=== PATIENT | male | born 1945 | race Caucasian/White ===

== ENCOUNTER 2016-07-31 07:42 | Inpatient (IN) ==
[2016-07-31] MEDS ORDERED: 0.9 % Sodium Chloride 1,000 ML IVC ONE (08:08)
--- NOTE | 2016-07-31 08:12 | Emergency Department Note ---
Disposition Clinical Impression: Parkinson disease, Chronic a-fib, Elevated troponin, Sepsis Disposition: Admitted As Inpatient Condition: Fair Time of Disposition: 11:00 General Adult HPI - General Chief complaint: ED Weakness Stated complaint: weakness Time Seen by Provider: 07/31/16 07:55 Source: EMS Mode of arrival: EMS Limitations: altered mental status, physical limitation Nursing Notes Reviewed: Yes Vital Signs Reviewed: Yes - History of Present Illness HPI Narrative: Patient sent from half-way in [facility] he was found less responsive, diaphorectic this morning. He has a history dementia, Parkinson's disease. His blood pressure was low at the half-way and while enroute they administered fluids. Blood pressure did come up. He is unable to communicate and advise if he is having any pain at this time. Onset (ago): unknown Pain Scale: 0 Associated symptoms: Reports: diaphoresis, weakness - Related Data Home Medications Medication Instructions Recorded Confirmed Carbidopa/Levodopa 1 tab PO TID 04/19/15 07/31/16 [Carbidopa-Levodopa 10-100 Tab] Donepezil HCl [Donepezil HCl] 10 mg PO DAILY 04/19/15 07/31/16 Furosemide [Furosemide] 20 mg PO DAILY 04/19/15 07/31/16 Memantine HCl [Namenda Xr] 28 mg PO HS 04/19/15 07/31/16 Potassium Chloride [Potassium 10 meq PO DAILY 04/19/15 07/31/16 Chloride] Verapamil HCl [Verapamil ER] 240 mg PO DAILY 04/19/15 07/31/16 Warfarin Sodium [Warfarin Sodium] 1.5 tab PO DAILY 04/19/15 07/31/16 Ammonium Lactate [Ashlyn-Hydrolac] 1 appl TP DAILY 07/31/16 07/31/16 Cetirizine HCl [All Day Allergy] 10 mg PO DAILY 07/31/16 07/31/16 Haloperidol Decanoate [Haldol] 5 mg IM DAILY PRN 07/31/16 07/31/16 Haloperidol [Haldol] 5 mg PO DAILY PRN 07/31/16 07/31/16 Menthol/Zinc Oxide [Moisture 1 appl TP QID 07/31/16 07/31/16 Barrier Ointment] Mirtazapine [Remeron] 15 mg PO HS 07/31/16 07/31/16 Quetiapine Fumarate [SEROquel] 25 mg PO BID 07/31/16 07/31/16 Quetiapine Fumarate [SEROquel] 25 mg PO QWEEK MDD saturday07/31/16 07/31/16 Sertraline [Zoloft] 100 mg PO DAILY 07/31/16 07/31/16 Allergies Allergy/AdvReac Type Severity Reaction Status Date / Time No Known Allergies Allergy Verified 07/31/16 07:47 All systems ED: reviewed and negative except as stated. Constitutional: Reports: weakness, night sweats Cardiovascular: Denies: chest pain, palpitations, dyspnea on exertion, edema, syncope Respiratory: Denies: cough, dyspnea, wheezes, hemoptysis, stridor Gastrointestinal: Denies: abdominal pain, nausea, vomiting, diarrhea, constipation, hematemesis, melena, hematochezia Past Medical History - Past Medical History Attestation: Yes The following information was validated with the patient. Source: old records reviewed, obtained from family, nursing notes reviewed Medical history: Reports: atrial fibrillation, CHF, COPD, DVT, dementia, pulmonary embolus Surgical history: Reports: other Psychiatric history: Reports: no psych history - Social History Smoking Status: Former smoker Smokeless Tobacco Status: No Alcohol use: Reports: none Drug use: Reports: none Physical Exam - General Limitations: altered mental status, physical limitation General appearance: alert - Head Head exam: atraumatic, normocephalic, normal inspection - Eye Eye exam: Present: normal appearance, PERRL, EOMI. Absent: conjunctival injection, nystagmus, periorbital tenderness - ENT ENT exam: normal exam, normal oropharynx, mucous membranes moist - Neck Neck exam: Present: normal inspection, full ROM, trachea midline - Chest Chest inspection: Present: normal inspection, symmetric chest wall rise. Absent : tenderness, rash, abscess - Respiratory Respiratory exam: Present: normal lung sounds bilaterally - Cardiovascular Cardiovascular exam: Present: regular rate, normal rhythm, normal heart sounds. Absent: JVD - Abdominal Exam Abdominal exam: Present: soft, Non-Tender, normal bowel sounds - Extremities Exam Extremities exam: Present: normal inspection, full ROM. Absent: tenderness, pedal edema - Back Exam Back exam: Present: normal inspection, full ROM. Absent: tenderness - Neurological Exam Neurological exam: Absent: alert, oriented X3, normal gait, reflexes normal - Skin Skin exam: Present: warm, dry, intact, pallor Course - Consultations Consultation #1: Advised hospitalist of need to admit patient to the hospital. She ordered CT head and give IV D5 due to dehydration Time: 11:50 Vital Signs Temperature 98.6 F 07/31/16 07:50 Pulse Rate 84 07/31/16 07:50 Respiratory Rate 22 07/31/16 07:50 Blood Pressure 108/64 07/31/16 07:50 O2 Sat by Pulse Oximetry 97 07/31/16 07:50 Temperature 98.6 F 07/31/16 07:50 Pulse Rate 92 07/31/16 08:43 Respiratory Rate 16 07/31/16 12:52 Blood Pressure 115/88 07/31/16 12:52 O2 Sat by Pulse Oximetry 98 07/31/16 08:43 Oxygen Delivery Oxygen Delivery Room Air Medical Decision Making - Lab Data Result diagrams: 07/31/16 08:29 07/31/16 08:29 Lab Results 07/31/16 07/31/16 07/31/16 Range/Units 08:29 08:29 08:29 WBC 18.0 H (4.3-11.1) K/mcL RBC 4.89 (4.19-5.50) M/mcL Hgb 15.0 (12.9-16.9) g/dL Hct 45.6 (37.5-50.1) % MCV 93.3 (83.0-100.0) fL MCH 30.7 (28.0-33.3) pg MCHC 32.9 (31.6-35.5) g/dL RDW 15.1 H (11.5-14.5) % Plt Count 160 (140-400) K/mcL MPV 9.8 (9.4-12.4) fL Immature Gran % 0.5 (0-4) % Seg Neutrophils % 90.2 % Lymphocytes % 4.1 % Monocytes % 5.0 % Eosinophils % 0.0 % Basophils % 0.2 % Neutrophils # 16.3 H (1.6-8.9) K/mcL Lymphocytes # 0.7 (0.6-4.6) K/mcL Monocytes # 0.9 (0.0-1.3) K/mcL Eosinophils # 0.0 (0.0-0.6) K/mcL Basophils # 0.0 (0.0-0.2) K/mcL Sodium 150 H (136-145) mEq/L Potassium 3.9 (3.5-4.5) mEq/L Chloride 118 H (98-109) mEq/L Carbon Dioxide 18 L (19-29) mEq/L BUN 40 H (8-26) mg/dL Creatinine 1.49 H (0.72-1.25) mg/dL Est GFR ( Amer) 57 L (> 60) Est GFR (Non-Af Amer) 47 L (> 60) BUN/Creatinine Ratio 27 H (6-26) Glucose 100 H (70-99) mg/dL Calculated Osmolality 320 H (280-300) Calcium 9.6 (8.6-10.8) mg/dL Magnesium 2.1 (1.6-2.6) mg/dL Total Bilirubin 0.6 (0.2-1.2) mg/dL AST 320 H (5-34) Units/L ALT 345 H (0-55) Units/L Alkaline Phosphatase 89 (38-126) Units/L Troponin I 0.57 H* (0-0.03) ng/mL Serum Total Protein 7.2 (6.0-8.3) g/dL Albumin 3.6 (3.5-5.0) g/dL Globulin 3.6 H (2.4-3.5) g/dL Albumin/Globulin Ratio 1.0 L (1.1-2.2) Urine Color (Yellow) Urine Clarity (Clear) Urine pH (5.0-8.0) pH Units Ur Specific [place] (1.010-1.025) Urine Protein (Neg-Trace) mg/dL Urine Glucose (UA) (Normal) mg/dL Urine Ketones (Negative) mg/dL Urine Blood (Negative) Urine Nitrite (Negative) Urine Bilirubin (Negative) Urine Urobilinogen (Normal) mg/dL Ur Leukocyte Esterase (Negative) Urine Microscopic RBC (0-3) per hpf Urine Microscopic WBC (0-3) per hpf Ur Squamous Epith Cells (None-Few) per lpf Ur Transition Epith Cell (None-Few) per hpf Calcium Oxalate Crystal Urine Bacteria (None-Few) per hpf Hyaline Casts (None-Few) per lpf Granular Casts (None Seen) per lpf Waxy Casts (None Seen) per lpf Urine Mucus (Few) Ur Culture Indicated? (NO) 07/31/16 Range/Units 08:43 WBC (4.3-11.1) K/mcL RBC (4.19-5.50) M/mcL Hgb (12.9-16.9) g/dL Hct (37.5-50.1) % MCV (83.0-100.0) fL MCH (28.0-33.3) pg MCHC (31.6-35.5) g/dL RDW (11.5-14.5) % Plt Count (140-400) K/mcL MPV (9.4-12.4) fL Immature Gran % (0-4) % Seg Neutrophils % % Lymphocytes % % Monocytes % % Eosinophils % % Basophils % % Neutrophils # (1.6-8.9) K/mcL Lymphocytes # (0.6-4.6) K/mcL Monocytes # (0.0-1.3) K/mcL Eosinophils # (0.0-0.6) K/mcL Basophils # (0.0-0.2) K/mcL Sodium (136-145) mEq/L Potassium (3.5-4.5) mEq/L Chloride (98-109) mEq/L Carbon Dioxide (19-29) mEq/L BUN (8-26) mg/dL Creatinine (0.72-1.25) mg/dL Est GFR ( Amer) (> 60) Est GFR (Non-Af Amer) (> 60) BUN/Creatinine Ratio (6-26) Glucose (70-99) mg/dL Calculated Osmolality (280-300) Calcium (8.6-10.8) mg/dL Magnesium (1.6-2.6) mg/dL Total Bilirubin (0.2-1.2) mg/dL AST (5-34) Units/L ALT (0-55) Units/L Alkaline Phosphatase (38-126) Units/L Troponin I (0-0.03) ng/mL Serum Total Protein (6.0-8.3) g/dL Albumin (3.5-5.0) g/dL Globulin (2.4-3.5) g/dL Albumin/Globulin Ratio (1.1-2.2) Urine Color Dark Yellow (Yellow) Urine Clarity Turbid A (Clear) Urine pH 5.0 (5.0-8.0) pH Units Ur Specific [place] > 1.030 H (1.010-1.025) Urine Protein 30 H (Neg-Trace) mg/dL Urine Glucose (UA) Normal (Normal) mg/dL Urine Ketones 15 H (Negative) mg/dL Urine Blood Small H (Negative) Urine Nitrite Negative (Negative) Urine Bilirubin Moderate H (Negative) Urine Urobilinogen Normal (Normal) mg/dL Ur Leukocyte Esterase Negative (Negative) Urine Microscopic RBC 3-5 H (0-3) per hpf Urine Microscopic WBC 0-3 (0-3) per hpf Ur Squamous Epith Cells Few (None-Few) per lpf Ur Transition Epith Cell Few (None-Few) per hpf Calcium Oxalate Crystal Present Urine Bacteria Moderate H (None-Few) per hpf Hyaline Casts Many H (None-Few) per lpf Granular Casts Moderate H (None Seen) per lpf Waxy Casts Moderate H (None Seen) per lpf Urine Mucus Many H (Few) Ur Culture Indicated? NO (NO) Attestation Statement - Attestation Attestation: For this encounter, I have reviewed the BLAST[employer]ER or PA documentation, treatment plan, and medical decision making; and I have had face to face time with this patient. A 71-year-old male who comes in from the half-way has a history of Parkinson's disease has been very weak change from the half-way is normal status. Exam the patient has a persistent tremor lungs are clear the abdomen is soft. We did obtain lab work he does have an elevated troponin of 0.57, EKG shows nothing acute. We'll go ahead and admit him to the hospital for further evaluation and treatment.
[2016-07-31 08:37] LABS: Basophils % 0.2 %; Hematocrit 45.6 % (37.5-50.1); Immature Granulocytes % 0.5 % (0-4); Lymphocytes # 0.7 K/mcL (0.6-4.6); Lymphocytes % 4.1 %; Mean Corpuscular HGB Conc 32.9 g/dL (31.6-35.5); Mean Corpuscular Hemoglobin 30.7 pg (28.0-33.3); Mean Corpuscular Volume 93.3 fL (83.0-100.0); Mean Platelet Volume 9.8 fL (9.4-12.4); Monocytes # 0.9 K/mcL (0.0-1.3); Neutrophils # 16.3 K/mcL (1.6-8.9); Platelet Count 160 K/mcL (140-400); Red Blood Count 4.89 M/mcL (4.19-5.50); Red Cell Distribution Width 15.1 % (11.5-14.5); Segmented Neutrophils % 90.2 %
[2016-07-31 08:50] LABS: Albumin 3.6 g/dL (3.5-5.0); Bilirubin,Total 0.6 mg/dL (0.2-1.2); Calcium 9.6 mg/dL (8.6-10.8); Globulin 3.6 g/dL (2.4-3.5); Magnesium 2.1 mg/dL (1.6-2.6); Potassium 3.9 mEq/L (3.5-4.5); Total Protein 7.2 g/dL (6.0-8.3)
[2016-07-31 09:40] LABS: Bilirubin,Urine Moderate (Negative); Blood,Urine Small (Negative); Clarity,Urine Turbid (Clear); Color,Urine Dark Yellow (Yellow); Glucose,Urine (UA) Normal (Normal); Ketones,Urine 15 mg/dL (Negative); Leukocyte Esterase,Urine Negative (Negative); Nitrite,Urine Negative (Negative); Protein,Urine 30 mg/dL (Neg-Trace); Specific Gravity,Urine > 1.030 (1.010-1.025); Urobilinogen,Urine Normal (Normal)
[2016-07-31 09:50] LABS: Hyaline Casts,Urine Many per lpf (None-Few); Mucus,Urine Many (Few)
[2016-07-31 09:51] LABS: Granular Casts,Urine Moderate per lpf (None Seen)
[2016-07-31 09:52] LABS: Waxy Casts,Urine Moderate per lpf (None Seen)
[2016-07-31 09:53] LABS: Bacteria,Urine Moderate per hpf (None-Few); Calcium Oxalate Crystals,Urine Present; Squamous Epithelial Cell,Urine Few per lpf (None-Few); Transitional Epi Cells,Urine Few per hpf (None-Few); WBC,Urine 0-3 per hpf (0-3)
[2016-07-31] MEDS ORDERED: Piperacillin/Tazobactam 3.375 GM in D5% in Water (Mini-Bag+) 100 ML IVPB ONE (10:32)
[2016-07-31] MEDS ORDERED: [UNRECOGNIZED DRUG - OTHER] IVC SCH (12:00)
--- NOTE | 2016-07-31 13:33 | Internal Med History&Physical ---
<Cuba Munoz - Last Filed: 07/31/16 14:35> Date of Encounter: 07/31/16 Time of Encounter: 13:33 Assessment and Plan (1) Altered mental status Current visit: Yes Status: Acute Likely etiology from delerium in setting of worsening/severe dementia and Parkinsons Unclear how far patient currently is from his baseline as he is speaking coherently and follows commands Await family to arrive as patient is poor historian and not able to provide accurate history Head CT ruled out acute intracranial abnormalities, no indication for follow up MRI at this time as there are no focal deficits Will obtain metabolic workup including ammonia, TSH, B12, Folate Consult speech therapy for formal swallow evaluation prior to starting PO intake Qualifiers: Qualified Code(s): R41.82 - Altered mental status, unspecified (2) GRECIA (acute kidney injury) Current visit: Yes Status: Acute Likely pre-renal in setting of dehydration Cr is elevated at 1.49, one isolated reading of 0.87 in Mar 2015 Will hydrate with D5W at 100 ml/hr for next 24 hours and give free water with meals after swallow evaluation (3) Hypernatremia Current visit: Yes Status: Acute Sodium was 150 upon admission, likely from dehydration Already received fluid boluses in ED, but will start on D5W at 100 ml/hr Free water deficit of 2.9 L, will need to administer free water with meals if he can tolerate PO intake Recheck BMP at 1800 and closely monitor other electrolytes (4) Elevated troponin Current visit: Yes Status: Acute Likely from demand ischemia, patient denies any chest pain Will trend troponins twice more No need for urgent cardiology consult at this point (5) CHF (congestive heart failure) Current visit: Yes Status: Chronic This is suspected, but there are no documents of Echocardiograms, which we will order for him He does take 20 mg Lasix daily, but this will be held in setting of dehydration and GRECIA Qualifiers: Qualified Code(s): I50.9 - Heart failure, unspecified (6) Chronic a-fib Current visit: Yes Status: Chronic Currently in NSR, continue with home Verapamil dose On intermediate AC with Coumadin, will check PT/INR levels (7) Parkinson disease Current visit: Yes Status: Chronic Continue home medications, Donepezil and Sinemet (8) DVT prophylaxis Current visit: Yes Status: Acute Continue on home Coumadin Internal Medicine - H&P: HPI Chief complaint: weakness, altered mental status Admitted From: Long-term Nursing Facility Plans for Post Hospital Care: Transfer Skilled Nursing Care History of present illness: Mr. Meza is a 71 year old male who presented from his custodial, [place], with altered mental status and weakness. There is no family or friends at bedside and patient is a poor historian given his history of Parkinsons and dementia. He has significant tremors bilaterally and states it's slightly worse than usual. He does speak coherently and uses a maximum of 3-4 words per sentence. He is oriented to himself but does not know his year, and knows he's in a hospital but not which one. He has some dried blood in his mouth but states it occurs when he brushes his teeth. Pt denies any pain anywhere nor has issues with breathing, fevers, nausea, vomiting, or urinary difficulties. Per ED RN, patient's son was initially present but returned to work at [employer]. Past Med Surg Social Fam HX - Past Medical History Medical history: atrial fibrillation, CHF, COPD, DVT, dementia, pulmonary embolus Psychiatric history: no psych history - Past Surgical History Surgical History: other - Social History Smoking Status: Former smoker Smokeless Tobacco Status: No Alcohol use: none Drug use: none Internal Medicine - H&P: Meds Carbidopa/Levodopa [Carbidopa-Levodopa 10-100 Tab] 1 tab PO TID 04/19/15 [ History] Donepezil HCl [Donepezil HCl] 10 mg PO DAILY 04/19/15 [History] Furosemide [Furosemide] 20 mg PO DAILY 04/19/15 [History] Memantine HCl [Namenda Xr] 28 mg PO HS 04/19/15 [History] Potassium Chloride [Potassium Chloride] 10 meq PO DAILY 04/19/15 [History] Verapamil HCl [Verapamil ER] 240 mg PO DAILY 04/19/15 [History] Warfarin Sodium [Warfarin Sodium] 1.5 tab PO DAILY 04/19/15 [History] Ammonium Lactate [Ashlyn-Hydrolac] 1 appl TP DAILY 07/31/16 [History] Cetirizine HCl [All Day Allergy] 10 mg PO DAILY 07/31/16 [History] Haloperidol Decanoate [Haldol] 5 mg IM DAILY PRN 07/31/16 [History] Haloperidol [Haldol] 5 mg PO DAILY PRN 07/31/16 [History] Menthol/Zinc Oxide [Moisture Barrier Ointment] 1 appl TP QID 07/31/16 [History] Mirtazapine [Remeron] 15 mg PO HS 07/31/16 [History] Quetiapine Fumarate [SEROquel] 25 mg PO BID 07/31/16 [History] Quetiapine Fumarate [SEROquel] 25 mg PO QWEEK MDD saturday07/31/16 [History] Sertraline [Zoloft] 100 mg PO DAILY 07/31/16 [History] Allergies No Known Allergies Allergy (Verified 07/31/16 07:47) ROS unobtainable: due to mental status All Systems PM: A 10-system review of systems was performed and is negative for pertinent findings except as documented above in the HPI. - Constitutional Vitals: Temp Pulse Resp BP Pulse Ox 98.6 F 92 16 115/88 98 07/31/16 07:50 07/31/16 08:43 07/31/16 12:52 07/31/16 12:52 07/31/16 08:43 General appearance: Present: A&O X 0, disheveled, no acute distress, answers questions appropriately - Head Head exam: Present: atraumatic, normocephalic - Eye Eye exam: Present: PERRL, conjuntiva pink, sclera anicteric - Neck Neck exam general surgery: Present: supple, trachea midline. Absent: lymphadenopathy - Respiratory Respiratory exam: Present: CTAB. Absent: accessory muscle use, rales, rhonchi, wheezes - Cardiovascular Cardiovascular exam: Present: RRR, +S1, +S2, systolic murmur. Absent: diastolic murmur, gallop, rubs, tachycardia - GI/Abdominal GI/Abdominal exam: Present: normal bowel sounds, soft, no peritoneal signs. Absent: distended, tenderness - Extremities Exam Extremities exam: Present: warm, radial pulses palpable and symetrical. Absent : calf tenderness, cyanotic, pedal edema - Neurological Exam Neurological exam: Present: alert, CN II-XII intact, no focal deficits. Absent : oriented X3, pronater drift, facial droop, speech deficit Additional comments: significant tremor of both upper extremities, mild tremor of lower extremities; has h/o Parkinsons - Skin Skin exam: Present: dry, intact Internal Med - H&P Results - Labs CBC & Chem 7: 07/31/16 08:29 07/31/16 08:29 <Mary Kay Palomo - Last Filed: 08/01/16 07:38> Date of Encounter: 08/01/16 Internal Medicine - H&P: HPI History of present illness: Mr. Meza is a 71 year old male All Systems PM: A 10-system review of systems was performed and is negative for pertinent findings except as documented above in the HPI. - Constitutional Vitals: Temp Pulse Resp BP Pulse Ox 97.5 F L 64 14 97/54 97 08/01/16 06:33 08/01/16 06:33 08/01/16 06:33 08/01/16 06:33 08/01/16 06:33 Internal Med - H&P Results - Labs CBC & Chem 7: 08/01/16 01:11 08/01/16 01:11 Labs: Short CBC 08/01/16 Range/Units 01:11 WBC 12.9 H (4.3-11.1) K/mcL Hgb 12.6 L D (12.9-16.9) g/dL Hct 38.6 (37.5-50.1) % Plt Count 157 (140-400) K/mcL BMP 07/31/16 08/01/16 17:43 01:11 Sodium 149 H 147 H Potassium 4.0 3.6 Chloride 117 H 116 H Carbon Dioxide 19 26 BUN 43 H 44 H Creatinine 1.22 1.10 Glucose 92 102 H Calcium 9.3 8.7 Cardiac Enzymes 07/31/16 08/01/16 Range/Units 17:43 01:11 Troponin I 0.34 H* 0.24 H* (0-0.03) ng/mL Liver Function 08/01/16 Range/Units 01:11 Total Bilirubin 0.6 (0.2-1.2) mg/dL AST 251 H (5-34) Units/L ALT 131 H (0-55) Units/L Alkaline Phosphatase 70 (38-126) Units/L Albumin 3.1 L (3.5-5.0) g/dL
[2016-07-31] MEDS ORDERED: Naloxone 0.4 MG/ML INJ IVP PRN (13:35)
[2016-07-31] MEDS ORDERED: Acetaminophen 325 MG TABLET PO PRN (13:35)
[2016-07-31] MEDS ORDERED: Ondansetron ODT 4 MG TAB.RAPDIS SL PRN (13:35)
[2016-07-31] MEDS ORDERED: D5% in Water 1,000 ML IVC SCH (13:45)
[2016-07-31 14:45] LABS: Prothrombin Time 33.2 Seconds (9.4-12.1)
[2016-07-31] MEDS: D5% in Water 1,000 ML IVC SCH (16:29)
[2016-07-31] MEDS ORDERED: Piperacillin/Tazobactam 2.25 GM in D5% in Water (Mini-Bag+) 100 ML IVPB SCH (17:00)
[2016-07-31] MEDS ORDERED: *HR* Warfarin 3 MG TABLET PO SCH (18:00)
[2016-07-31] MEDS ORDERED: 0.9 % Sodium Chloride 1,000 ML ONE (18:10)
[2016-07-31 18:14] LABS: INR 3.1; Prothrombin Time 34.4 Seconds (9.4-12.1)
[2016-07-31 18:18] LABS: BUN/Creatinine Ratio 35 (6-26); Blood Urea Nitrogen 43 mg/dL (8-26); Calcium 9.3 mg/dL (8.6-10.8); Carbon Dioxide 19 mEq/L (19-29); Chloride 117 mEq/L (98-109); Glucose 92 mg/dL (70-99); Osmolality,Calculated 318 (280-300); Sodium 149 mEq/L (136-145); eGFR For African Americans > 60 (> 60); eGFR For Non-African Americans 59 (> 60)
[2016-07-31] MEDS ORDERED: 0.9 % Sodium Chloride 500 ML IVC ONE (18:24)
[2016-07-31] MEDS: Piperacillin/Tazobactam 3.375 GM in D5% in Water (Mini-Bag+) 100 ML IVPB SCH (19:38)
[2016-07-31] MEDS ORDERED: (Memantine Hcl [Namenda Xr] 28 MG) PO SCH (21:00)
[2016-07-31] MEDS: Mirtazapine 15 MG TABLET PO SCH (21:06)
[2016-08-01 01:21] LABS: Hematocrit 38.6 % (37.5-50.1); Mean Corpuscular HGB Conc 32.6 g/dL (31.6-35.5); Mean Corpuscular Hemoglobin 30.6 pg (28.0-33.3); Mean Corpuscular Volume 93.7 fL (83.0-100.0); Mean Platelet Volume 10.5 fL (9.4-12.4); Platelet Count 157 K/mcL (140-400); Red Blood Count 4.12 M/mcL (4.19-5.50); Red Cell Distribution Width 15.5 % (11.5-14.5)
[2016-08-01 01:24] LABS: Hemoglobin 12.6 g/dL (12.9-16.9)
[2016-08-01 01:38] LABS: Alanine Aminotransferase 131 Units/L (0-55); Albumin 3.1 g/dL (3.5-5.0); Alkaline Phosphatase 70 Units/L (38-126); Aspartate Amino Transferase 251 Units/L (5-34); BUN/Creatinine Ratio 40 (6-26); Bilirubin,Total 0.6 mg/dL (0.2-1.2); Blood Urea Nitrogen 44 mg/dL (8-26); Calcium 8.7 mg/dL (8.6-10.8); Carbon Dioxide 26 mEq/L (19-29); Chloride 116 mEq/L (98-109); Chol/HDL Ratio 3.8 (0-4.9); Cholesterol 136 mg/dL (< 200); Glucose 102 mg/dL (70-99); HDL Cholesterol 36 mg/dL (40-59); LDL Cholesterol,Calculated 85 mg/dL (0-99); Osmolality,Calculated 315 (280-300); Potassium 3.6 mEq/L (3.5-4.5); Sodium 147 mEq/L (136-145); Total Protein 6.1 g/dL (6.0-8.3); Triglycerides 74 mg/dL (< 150); eGFR For African Americans > 60 (> 60); eGFR For Non-African Americans > 60 (> 60)
[2016-08-01 02:10] LABS: Folate 15.4 ng/mL (7.0-31.4)
[2016-08-01] MEDS: Piperacillin/Tazobactam 3.375 GM in D5% in Water (Mini-Bag+) 100 ML IVPB SCH ×3 (02:46→20:20)
[2016-08-01] MEDS ORDERED: Warfarin perPT PO SCH (09:00)
--- NOTE | 2016-08-01 09:35 | Electrocardiograph Report ---
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
[2016-08-01] MEDS: Verapamil ER (24 HR) 240 MG TABLET.ER PO SCH (10:04)
[2016-08-01] MEDS: Loratadine 10 MG TABLET PO SCH (10:05)
[2016-08-01] MEDS: Ammonium Lactate 30 APPL/225 GM BOTTLE TP SCH (10:05)
[2016-08-01] MEDS: D5% in Water 1,000 ML IVC SCH (10:33)
--- NOTE | 2016-08-01 10:43 | ECHO - Doppler Report ---
Echocardiogram Name: Flo Meza Date of Study: 07/31/2016 Date: 1945 Ht: 71.0 in Medical Record#: [id number] Age: 71 Wt: 180.0 lb Gender: Male BSA: 2.02 Order #: [id number] Location: [facility] Room #: 2A47 Reading Physician: Moe Grigsby DO, TRIPP, JANKI LYMAN Glass Etcher Helper: Thi Singleton Ordering Physician: Cuba Munoz DO Primary Physician: None Indications: Questionable Hx CHF, Dehydration Impressions: Technically difficult study. Patient would not cooperate. Sinus tachycardia. LVEF >70%. Normal LV chamber size and function. Mild concentric left ventricular hypertrophy. Indeterminate diastolic function. Normal right ventricular structure and function. Technically sub-optimal due to clinical status. No mitral regurgitation observed on this study. Moderate mitral stenosis suggested by Doppler. Mean gradient 8 mmHg, HR 100s. Visually, the mitral valve appears to have adequate mobility. Unable to estimate RVSP due to lack of TR jet. Left Ventricular Wall Motion: Rest Echo Findings All wall segments showed normal motion. Findings: Study Quality * Technically sub-optimal due to clinical status. Patient did not cooperate with the examination. ECG Findings * Sinus tachycardia. Left Ventricle * LVEF >70%. * Normal LV chamber size and function. * Mild concentric left ventricular hypertrophy. * Indeterminate diastolic function. Right Ventricle * Normal right ventricular structure and function. Left Atrium * Moderately dilated left atrium. Right Atrium * Mildly dilated right atrium. Interatrial Septum * Interatrial septum not well evaluated. Aortic Valve * Aortic valve not well visualized. * No aortic stenosis. * No aortic regurgitation visualized by color Doppler. Mitral Valve * Moderate mitral annular calcification, especially posteriorly. * Mildly thickened mitral valve leaflets. * No mitral regurgitation observed on this study. * Moderate mitral stenosis suggested by Doppler. Mean gradient 8 mmHg, HR 100s. Visually, the mitral valve appears to have adequate mobility. Tricuspid Valve * Normal tricuspid valve structure and function. * No tricuspid regurgitation. * Unable to estimate RVSP due to lack of TR jet. Pulmonic Valve * Pulmonic valve not well visualized. Aorta * Normally sized aortic root. Pericardium * The pericardium appears normal. IVC * The IVC is not dilated. Pulmonary Artery * Pulmonary artery not well visualized. History Hypercholesteremia Rheumatic Fever Years 61 Packs 1 Family History of CAD History of CAD/PTCA Myocardial Infarction Congestive Heart Failure Valvular Disease 12/16/2013 a Previous Echo was performed. Measurements: BP: 115/ 88 2D Normal Values RVIDd: 3.20 cm <2.7 cm IVSd: .89 cm 0.6 - 1.0 cm LVIDd: 3.95 cm 3.7 - 5.6 cm LVPWd: .89 cm 0.6 - 1.1 cm LVIDs: 2.70 cm 1.5 - 3.6 cm AO: 1.80 cm < 4.0 cm LA: 2.90 cm 2.0 - 4.0cm %FS: 31.60 cm >25 % LVOT Diam: 1.80 cm LA volume: 51 Mitral Valve Peak Velocity 2.19 m/sec Mean Velocity:1.31 m/sec Peak Grad:19.00 mmHg Mean Grad:8.00 mmHg Peak E:1.83 m/sec Peak E' Lat Brendan:26.1 cm/s Peak E' Med Brendan:17.2 cm/s E/E' Lat Ratio:7 E/E' Med Ratio:10.6 Aortic Valve AI pressure Half-time: 397.00 msec Updated by Moe Grigsby DO, TRIPP, JANKI LYMAN on 08/01/2016 10:34:45 AM electronically signed on 08/01/2016 10:38:19 AM with status of Final Wall Motion Diaz: 1=Normal, 2=Hypokinesis, 3=Akinesis, 4=Dyskinesis, 5=Aneurysmal, 6=Hyperkinetic, X=Not Visualized (Blank)=Missing
--- NOTE | 2016-08-01 11:58 | Electrocardiograph Report ---
[facility] Test Date: 2016-07-31 Pat Name: ALEX FONG Department: 112 Room: 2A47 Gender: M Hospital Coder: TIAGO : 1945 Requested By: Kenny Roca Order Number: [id number] Reading MD: Miguel Squires MD Measurements Intervals [place] Rate: 94 P: PA: 0 QRS: 58 QRSD: 136 T: 45 QT: 378 QTc: 430 Interpretive Statements BASELINE ARTIFACT COMPLICATES INTERPRETATION BUT APPEARS TO BE NORMAL SINUS RHYTHM Electronically Signed On 08-01-16 11:57:13 EST by Miguel Squires MD
[2016-08-01] MEDS ORDERED: 0.9 % Sodium Chloride 1,000 ML IVC SCH (12:30)
--- NOTE | 2016-08-01 14:31 | Electrocardiograph Report ---
[facility] Test Date: 2016-08-01 Pat Name: Flo Meza Department: 112 Room: 2A47 Gender: M Press Supervisor: CLIVE : 1945 Requested By: Kenny Roca Order Number: [id number] Reading MD: Moe Grigsby DO Measurements Intervals [place] Rate: 88 P: NE: 0 QRS: 231 QRSD: 134 T: 97 QT: 424 QTc: 470 Interpretive Statements Baseline artifact makes interpretation difficult Precordial leads suggest regular rhythm, possibly sinus Recommend repeat study if clinically appropriate Electronically Signed On 08-01-16 14:30:09 EST by Moe Grigsby DO
[2016-08-01 15:10] LABS: INR 4.6; Prothrombin Time 51.7 Seconds (9.4-12.1)
[2016-08-01] MEDS ORDERED: Warfarin perPT PO PRN (15:51)
[2016-08-01] MEDS: Mirtazapine 15 MG TABLET PO SCH (20:21)
[2016-08-02] MEDS: Piperacillin/Tazobactam 3.375 GM in D5% in Water (Mini-Bag+) 100 ML IVPB SCH ×3 (06:34→18:29)
[2016-08-02 08:52] LABS: Basophils % 0.4 %; Eosinophils # 0.1 K/mcL (0.0-0.6); Eosinophils % 1.3 %; Hematocrit 38.7 % (37.5-50.1); Hemoglobin 12.7 g/dL (12.9-16.9); Immature Granulocytes % 0.7 % (0-4); Lymphocytes # 1.5 K/mcL (0.6-4.6); Lymphocytes % 17.6 %; Mean Corpuscular HGB Conc 32.8 g/dL (31.6-35.5); Mean Corpuscular Hemoglobin 30.7 pg (28.0-33.3); Mean Corpuscular Volume 93.5 fL (83.0-100.0); Mean Platelet Volume 10.3 fL (9.4-12.4); Monocytes # 0.7 K/mcL (0.0-1.3); Monocytes % 8.7 %; Platelet Count 124 K/mcL (140-400); Red Blood Count 4.14 M/mcL (4.19-5.50); Red Cell Distribution Width 15.3 % (11.5-14.5); Segmented Neutrophils % 71.3 %
[2016-08-02 09:01] LABS: BUN/Creatinine Ratio 35 (6-26); Calcium 8.5 mg/dL (8.6-10.8); Carbon Dioxide 27 mEq/L (19-29); Chloride 112 mEq/L (98-109); Glucose 112 mg/dL (70-99); Osmolality,Calculated 305 (280-300); Potassium 3.7 mEq/L (3.5-4.5); Sodium 144 mEq/L (136-145); eGFR For African Americans > 60 (> 60); eGFR For Non-African Americans > 60 (> 60)
[2016-08-02 09:02] LABS: Blood Urea Nitrogen 29 mg/dL (8-26)
[2016-08-02 09:15] LABS: Prothrombin Time 51.9 Seconds (9.4-12.1)
[2016-08-02 09:16] LABS: INR 4.6
--- NOTE | 2016-08-02 09:47 | Electrocardiograph Report ---
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
[2016-08-02] MEDS: Verapamil ER (24 HR) 240 MG TABLET.ER PO SCH (10:15)
[2016-08-02] MEDS: Loratadine 10 MG TABLET PO SCH (10:16)
[2016-08-02] MEDS: Ammonium Lactate 30 APPL/225 GM BOTTLE TP SCH (10:18)
--- NOTE | 2016-08-02 16:39 | Internal Med Progress Note ---
Date of Encounter: 08/02/16 Time of Encounter: 16:36 - Assessment and plan (1) Altered mental status Current Visit: Yes Status: Acute Assessment and plan: Appears to be at baseline. Not agitated, remains calm. Answers yes or no questions. No family at the bedside. CT head shows no acute pathology. We will continue to monitor. Qualifiers: Qualified Code(s): R41.82 - Altered mental status, unspecified (2) Elevated troponin Current Visit: Yes Status: Acute Assessment and plan: Most likely secondary to demand ischemia, presented with hypoxia and hypotension with leukocytosis. Denies any chest pain, echo shows normal LVEF. less likely ACS at this time, no further intervention. (3) Hypernatremia Current Visit: Yes Status: Acute Assessment and plan: has improved with half normal saline. Patient is able to eat and drink orally. Is also on free fluids. appears to be 2/2 dehydration. We will continue the fluids one more day,. (4) Sepsis Current Visit: Yes Status: Acute Assessment and plan: Presented with hypotension, fever and leukocytosis. Blood culture one set is growing gram-positive rods. Currently on Zosyn, leukocytosis is improved, blood pressure has improved and there is no fever. Unclear of the source yet, chest x-ray and urine is negative. Does not have any bedsores no skin infections. Given her presentation of sepsis, we will continue antibiotics to complete 7 days. Follow-up the final culture results, may de-escalate according to culture sensitivity. Qualifiers: Sepsis type: sepsis due to unspecified organism Qualified Code(s): A41.9 - Sepsis, unspecified organism (5) CHF (congestive heart failure) Current Visit: Yes Status: Chronic Assessment and plan: Euvolemic at this time. Echo shows LVEF of 70%, normal LV chamber size and function. Indeterminate diastolic function. Qualifiers: Qualified Code(s): I50.9 - Heart failure, unspecified (6) Chronic a-fib Current Visit: Yes Status: Chronic Assessment and plan: Currently in NSR, continue with home Verapamil dose On alf AC with Coumadin, pharmacy dosing coumadin for the supratherapeutic INR. (7) Parkinson disease Current Visit: Yes Status: Chronic Assessment and plan: continue home meds, - Time Spent With Patient 25 - 35 minutes - Subjective Interval history: seen at the bedside, denies any complaints, demented at baseline. No nausea or vomiting. Maintaining sats on 2 L of nasal cannula. - Constitutional Vitals: Temp Pulse Resp BP Pulse Ox 98.1 F 65 18 104/64 95 08/02/16 15:21 08/02/16 15:21 08/02/16 15:21 08/02/16 15:21 08/02/16 15:21 General appearance: Present: A&O X 0, disheveled, no acute distress, answers questions appropriately Exam: General appearance: Present: A&O X 0, disheveled, no acute distress, answers questions appropriately - Head Head exam: Present: atraumatic, normocephalic - Eye Eye exam: Present: PERRL, conjuntiva pink, sclera anicteric - Neck Neck exam general surgery: Present: supple, trachea midline. Absent: lymphadenopathy - Respiratory Respiratory exam: Present: CTAB. Absent: accessory muscle use, rales, rhonchi, wheezes - Cardiovascular Cardiovascular exam: Present: RRR, +S1, +S2, systolic murmur. Absent: diastolic murmur, gallop, rubs, tachycardia - GI/Abdominal GI/Abdominal exam: Present: normal bowel sounds, soft, no peritoneal signs. Absent: distended, tenderness - Extremities Exam Extremities exam: Present: warm, radial pulses palpable and symetrical. Absent : calf tenderness, cyanotic, pedal edema - Neurological Exam Neurological exam: Present: alert, CN II-XII intact, no focal deficits. Absent : oriented X3, pronater drift, facial droop, speech deficit Additional comments: significant tremor of both upper extremities, mild tremor of lower extremities; has h/o Parkinsons - Skin Skin exam: Present: dry, intact Internal Medicine: Result - Labs CBC & Chem 7: 08/02/16 08:37 08/02/16 08:37 Labs: Short CBC 08/02/16 Range/Units 08:37 WBC 8.4 (4.3-11.1) K/mcL Hgb 12.7 L (12.9-16.9) g/dL Hct 38.7 (37.5-50.1) % Plt Count 124 L (140-400) K/mcL Neutrophils # 6.0 (1.6-8.9) K/mcL BMP 08/02/16 08:37 Sodium 144 Potassium 3.7 Chloride 112 H Carbon Dioxide 27 BUN 29 H D Creatinine 0.82 Glucose 112 H Calcium 8.5 L - ABG Interpretation ABG results: PT/INR, D-dimer PT 51.9 Seconds (9.4-12.1) H* 08/02/16 08:37 - VTE Documentation of Mechanical Device: Intermittent pneumatic compression device Consult Discharge Plan - Plan Referrals: NO,PCP [Primary Care Provider] -
--- NOTE | 2016-08-02 17:10 | Internal Med Progress Note ---
Date of Encounter: 08/01/16 Time of Encounter: 17:08 - Assessment and plan (1) Altered mental status Current Visit: Yes Status: Acute Assessment and plan: Appears to be at baseline. Not agitated, remains calm. Answers yes or no questions. No family at the bedside. CT head shows no acute pathology. We will continue to monitor. Qualifiers: Qualified Code(s): R41.82 - Altered mental status, unspecified (2) Elevated troponin Current Visit: Yes Status: Acute Assessment and plan: Most likely secondary to demand ischemia, presented with hypoxia and hypotension with leukocytosis. Denies any chest pain, echo shows normal LVEF. less likely ACS at this time, no further intervention. (3) Hypernatremia Current Visit: Yes Status: Acute Assessment and plan: has improved with half normal saline. Patient is able to eat and drink orally. Is also on free fluids. appears to be 2/2 dehydration. We will continue the fluids .. (4) Sepsis Current Visit: Yes Status: Acute Assessment and plan: Presented with hypotension, fever and leukocytosis. Blood culture one set is growing gram-positive rods. Currently on Zosyn, leukocytosis is improved, blood pressure has improved and there is no fever. Unclear of the source yet, chest x-ray and urine is negative. Does not have any bedsores no skin infections. Given her presentation of sepsis, we will continue antibiotics to complete 7 days. Follow-up the final culture results, may de-escalate according to culture sensitivity. Qualifiers: Sepsis type: sepsis due to unspecified organism Qualified Code(s): A41.9 - Sepsis, unspecified organism (5) CHF (congestive heart failure) Current Visit: Yes Status: Chronic Assessment and plan: Euvolemic at this time. Echo shows LVEF of 70%, normal LV chamber size and function. Indeterminate diastolic function. Qualifiers: Qualified Code(s): I50.9 - Heart failure, unspecified (6) Chronic a-fib Current Visit: Yes Status: Chronic Assessment and plan: Currently in NSR, continue with home Verapamil dose On long term care phlebotomist AC with Coumadin, pharmacy dosing coumadin for the supratherapeutic INR. (7) Parkinson disease Current Visit: Yes Status: Chronic Assessment and plan: continue home meds, - Time Spent With Patient 25 - 35 minutes - Subjective Interval history: late entry seen at the bedside, denies any complaints, demented at baseline. No nausea or vomiting. Maintaining sats on 2 L of nasal cannula. Remains afebrile. - Constitutional Vitals: Temp Pulse Resp BP Pulse Ox 98.1 F 65 18 104/64 95 08/02/16 15:21 08/02/16 15:21 08/02/16 15:21 08/02/16 15:21 08/02/16 15:21 General appearance: Present: A&O X 0, disheveled, no acute distress, answers questions appropriately Exam: General appearance: Present: A&O X 0, disheveled, no acute distress, answers questions appropriately Exam: General appearance: Present: A&O X 0, disheveled, no acute distress, answers questions appropriately - Head Head exam: Present: atraumatic, normocephalic - Eye Eye exam: Present: PERRL, conjuntiva pink, sclera anicteric - Neck Neck exam general surgery: Present: supple, trachea midline. Absent: lymphadenopathy - Respiratory Respiratory exam: Present: CTAB. Absent: accessory muscle use, rales, rhonchi, wheezes - Cardiovascular Cardiovascular exam: Present: RRR, +S1, +S2, systolic murmur. Absent: diastolic murmur, gallop, rubs, tachycardia - GI/Abdominal GI/Abdominal exam: Present: normal bowel sounds, soft, no peritoneal signs. Absent: distended, tenderness - Extremities Exam Extremities exam: Present: warm, radial pulses palpable and symetrical. Absent : calf tenderness, cyanotic, pedal edema - Neurological Exam Neurological exam: Present: alert, CN II-XII intact, no focal deficits. Absent : oriented X3, pronater drift, facial droop, speech deficit Additional comments: significant tremor of both upper extremities, mild tremor of lower extremities; has h/o Parkinsons - Skin Skin exam: Present: dry, intact Internal Medicine: Result - Labs CBC & Chem 7: 08/02/16 08:37 08/02/16 08:37 Labs: Short CBC 08/02/16 Range/Units 08:37 WBC 8.4 (4.3-11.1) K/mcL Hgb 12.7 L (12.9-16.9) g/dL Hct 38.7 (37.5-50.1) % Plt Count 124 L (140-400) K/mcL Neutrophils # 6.0 (1.6-8.9) K/mcL BMP 08/02/16 08:37 Sodium 144 Potassium 3.7 Chloride 112 H Carbon Dioxide 27 BUN 29 H D Creatinine 0.82 Glucose 112 H Calcium 8.5 L - ABG Interpretation ABG results: PT/INR, D-dimer PT 51.9 Seconds (9.4-12.1) H* 08/02/16 08:37 - VTE Documentation of Mechanical Device: Intermittent pneumatic compression device Consult Discharge Plan - Plan Referrals: NO,PCP [Primary Care Provider] -
[2016-08-02] MEDS: Mirtazapine 15 MG TABLET PO SCH (20:54)
[2016-08-03] MEDS: Piperacillin/Tazobactam 3.375 GM in D5% in Water (Mini-Bag+) 100 ML IVPB SCH ×3 (04:45→20:37)
[2016-08-03 05:17] LABS: INR 4.7; Prothrombin Time 52.8 Seconds (9.4-12.1)
[2016-08-03] MEDS: Loratadine 10 MG TABLET PO SCH (10:29)
[2016-08-03] MEDS: Verapamil ER (24 HR) 240 MG TABLET.ER PO SCH (10:29)
[2016-08-03] MEDS: Ammonium Lactate 30 APPL/225 GM BOTTLE TP SCH (10:31)
[2016-08-03 13:17] LABS: Basophils % 0.4 %; Eosinophils # 0.1 K/mcL (0.0-0.6); Eosinophils % 1.6 %; Hematocrit 35.5 % (37.5-50.1); Hemoglobin 11.9 g/dL (12.9-16.9); Immature Granulocytes % 0.2 % (0-4); Lymphocytes # 1.2 K/mcL (0.6-4.6); Lymphocytes % 20.4 %; Mean Corpuscular HGB Conc 33.5 g/dL (31.6-35.5); Mean Corpuscular Hemoglobin 30.5 pg (28.0-33.3); Mean Platelet Volume 11.4 fL (9.4-12.4); Monocytes # 0.5 K/mcL (0.0-1.3); Monocytes % 8.6 %; Neutrophils # 3.9 K/mcL (1.6-8.9); Platelet Count 110 K/mcL (140-400); Red Cell Distribution Width 14.8 % (11.5-14.5); Segmented Neutrophils % 68.8 %
[2016-08-03 13:27] LABS: BUN/Creatinine Ratio 26 (6-26); Blood Urea Nitrogen 20 mg/dL (8-26); Calcium 8.1 mg/dL (8.6-10.8); Carbon Dioxide 24 mEq/L (19-29); Chloride 112 mEq/L (98-109); Glucose 128 mg/dL (70-99); Osmolality,Calculated 294 (280-300); Sodium 140 mEq/L (136-145); eGFR For African Americans > 60 (> 60); eGFR For Non-African Americans > 60 (> 60)
[2016-08-03 13:45] LABS: Platelet Estimate Decreased (Normal)
--- NOTE | 2016-08-03 17:02 | Internal Med Progress Note ---
Date of Encounter: 08/03/16 Time of Encounter: 10:00 - Assessment and plan (1) Pneumonia Current Visit: Yes Status: Acute Assessment and plan: facility acquired/ vs aspiration continue antibiotics, incentive spiromettry Qualifiers: Aspiration pneumonia type: unspecified Lung location: lower lobe of lung Qualified Code(s): J69.0 - Pneumonitis due to inhalation of food and vomit (2) Bacteremia Current Visit: Yes Status: Acute Assessment and plan: possible contaminant repeat blood cultures (3) Hypernatremia Current Visit: Yes Status: Resolved (4) Parkinson disease Current Visit: Yes Status: Chronic Assessment and plan: at base line - Time Spent With Patient 25 - 35 minutes - Subjective Interval history: Pt confused at times , no fever - Constitutional Vitals: Temp Pulse Resp BP Pulse Ox 97.5 F L 60 18 111/62 95 08/03/16 06:57 08/03/16 06:57 08/03/16 06:57 08/03/16 06:57 08/03/16 11:00 General appearance: Present: A&O X 0, disheveled, A&O X 2, no acute distress, answers questions appropriately. Absent: A&O X 1 - Respiratory Respiratory exam: Present: decreased breath sounds Additional comments: scattered ronchi /wheezes - Cardiovascular Cardiovascular exam: Present: +S1, +S2. Absent: RRR (irregular) - GI/Abdominal GI/Abdominal exam: Present: normal bowel sounds, soft - Extremities Exam Extremities exam: Present: warm, radial pulses palpable and symetrical Internal Medicine: Result - Labs CBC & Chem 7: 08/03/16 13:07 08/03/16 13:07 Labs: Short CBC 08/03/16 Range/Units 13:07 WBC 5.7 (4.3-11.1) K/mcL Hgb 11.9 L (12.9-16.9) g/dL Hct 35.5 L (37.5-50.1) % Plt Count 110 L (140-400) K/mcL Neutrophils # 3.9 (1.6-8.9) K/mcL BMP 08/03/16 13:07 Sodium 140 Potassium 4.0 Chloride 112 H Carbon Dioxide 24 BUN 20 Creatinine 0.77 Glucose 128 H Calcium 8.1 L - ABG Interpretation ABG results: PT/INR, D-dimer PT 52.8 Seconds (9.4-12.1) H* 08/03/16 04:38 - Impressions Impressions Chest X-Ray 08/03/16 12:23 IMPRESSION: 1. Left lower lobe airspace opacity. In the proper clinical setting, finding is compatible with pneumonia. Recommend follow-up chest radiograph 6-8 weeks post completion of treatment to ensure resolution. If finding persists at that time, CT of the chest would be recommended. 2. Stable mild enlargement of the cardiac silhouette. D/ / Maikel Calero MD / Maikel Calero MD Interpreting Provider: Maikel Calero MD - VTE Documentation of Mechanical Device: Intermittent pneumatic compression device Consult Discharge Plan - Plan Referrals: NO,PCP [Primary Care Provider] -
[2016-08-03] MEDS: Doxycycline 100 MG in 0.9 % Sodium Chloride Mini Bag 100 ML IVPB SCH (17:34)
[2016-08-03] MEDS: Vancomycin 1,250 MG in D5% in Water 250 ML IVPB SCH (18:42)
[2016-08-03] MEDS: Ipratropium/Albuterol Neb 3 ML IH SCH ×2 (20:05→23:31)
[2016-08-03] MEDS: Mirtazapine 15 MG TABLET PO SCH (20:36)
[2016-08-04] MEDS: Piperacillin/Tazobactam 3.375 GM in D5% in Water (Mini-Bag+) 100 ML IVPB SCH ×3 (03:24→19:50)
[2016-08-04] MEDS: Ipratropium/Albuterol Neb 3 ML IH SCH ×5 (03:56→20:30)
[2016-08-04] MEDS: Vancomycin 1,250 MG in D5% in Water 250 ML IVPB SCH ×2 (06:14→17:27)
[2016-08-04] MEDS: Doxycycline 100 MG in 0.9 % Sodium Chloride Mini Bag 100 ML IVPB SCH (06:15)
[2016-08-04 07:29] LABS: Basophils % 0.3 %; Eosinophils # 0.1 K/mcL (0.0-0.6); Hematocrit 39.4 % (37.5-50.1); Hemoglobin 12.8 g/dL (12.9-16.9); Immature Granulocytes % 0.3 % (0-4); Lymphocytes # 1.3 K/mcL (0.6-4.6); Mean Corpuscular HGB Conc 32.5 g/dL (31.6-35.5); Mean Corpuscular Hemoglobin 30.3 pg (28.0-33.3); Mean Corpuscular Volume 93.4 fL (83.0-100.0); Mean Platelet Volume 10.9 fL (9.4-12.4); Monocytes # 0.5 K/mcL (0.0-1.3); Monocytes % 8.7 %; Neutrophils # 4.1 K/mcL (1.6-8.9); Platelet Count 128 K/mcL (140-400); Red Blood Count 4.22 M/mcL (4.19-5.50); Red Cell Distribution Width 15.1 % (11.5-14.5); Segmented Neutrophils % 67.7 %
[2016-08-04 07:35] LABS: BUN/Creatinine Ratio 18 (6-26); Blood Urea Nitrogen 14 mg/dL (8-26); Calcium 8.8 mg/dL (8.6-10.8); Carbon Dioxide 27 mEq/L (19-29); Chloride 110 mEq/L (98-109); Glucose 115 mg/dL (70-99); Osmolality,Calculated 295 (280-300); Potassium 3.6 mEq/L (3.5-4.5); Sodium 142 mEq/L (136-145); eGFR For African Americans > 60 (> 60); eGFR For Non-African Americans > 60 (> 60)
[2016-08-04 07:36] LABS: Alanine Aminotransferase 568 Units/L (0-55); Albumin 2.8 g/dL (3.5-5.0); Albumin/Globulin Ratio 0.9 (1.1-2.2); Alkaline Phosphatase 71 Units/L (38-126); Aspartate Amino Transferase 254 Units/L (5-34); BUN/Creatinine Ratio 17 (6-26); Bilirubin,Total 0.8 mg/dL (0.2-1.2); Blood Urea Nitrogen 14 mg/dL (8-26); Calcium 8.8 mg/dL (8.6-10.8); Carbon Dioxide 28 mEq/L (19-29); Chloride 110 mEq/L (98-109); Globulin 3.1 g/dL (2.4-3.5); Glucose 115 mg/dL (70-99); Osmolality,Calculated 295 (280-300); Potassium 3.6 mEq/L (3.5-4.5); Sodium 142 mEq/L (136-145); Total Protein 5.9 g/dL (6.0-8.3); eGFR For African Americans > 60 (> 60); eGFR For Non-African Americans > 60 (> 60)
[2016-08-04 08:06] LABS: INR 4.8; Prothrombin Time 54.1 Seconds (9.4-12.1)
[2016-08-04] MEDS: Verapamil ER (24 HR) 240 MG TABLET.ER PO SCH (09:43)
[2016-08-04] MEDS: Loratadine 10 MG TABLET PO SCH (09:43)
[2016-08-04] MEDS: Ammonium Lactate 30 APPL/225 GM BOTTLE TP SCH (09:43)
[2016-08-04] MEDS ORDERED: *HR* Phytonadione 5 MG TABLET PO ONE (11:50)
--- NOTE | 2016-08-04 11:58 | Internal Med Progress Note ---
Date of Encounter: 08/04/16 Time of Encounter: 08:00 - Assessment and plan (1) Pneumonia Current Visit: Yes Status: Acute Assessment and plan: LEFT LOWER LOBE, POSSIBLE HEALTH CARE VS ASPIRATION SPEECH PLACED PT ON SPECIAL DIET ASPIRATION PRECAUTIONS, PER BLOOD CULTURES ON 07/31/2016 GRAM POSITIVE MO IDENTIFICATION PENDING, REPEATED CULTURES FORM YESTERDAY NO GROWTH ON VANCO EMPIRICALLY Qualifiers: Aspiration pneumonia type: unspecified Lung location: lower lobe of lung Qualified Code(s): J69.0 - Pneumonitis due to inhalation of food and vomit (2) Bacteremia Current Visit: Yes Status: Acute Assessment and plan: IDENITFICATION PENDING ON VANCO EMPIRICALLY (3) Parkinson disease Current Visit: Yes Status: Chronic Assessment and plan: AT BASE LINE OVERALL BAD PROGNOSIS (4) Chronic a-fib Current Visit: Yes Status: Chronic Assessment and plan: RATE CONTROL OFF COUMADIN FOR NOW DUE TO ELEVATED INR (5) Transaminitis Current Visit: Yes Status: Acute Assessment and plan: MEDICATION INDUCED? WILL DO us OF THE LIVER, FOLLOW LFT'S - Subjective Interval history: Pt FEELS BETTER DENIES FEVER OR CHILLS - Constitutional Vitals: Temp Pulse Resp BP Pulse Ox 97.4 F L 65 14 102/54 99 08/04/16 10:14 08/04/16 10:14 08/04/16 11:09 08/04/16 10:14 08/04/16 11:09 General appearance: Present: A&O X 0, A&O X 3, no acute distress, answers questions appropriately. Absent: A&O X 1, disheveled, A&O X 2 - Respiratory Respiratory exam: Present: decreased breath sounds Additional comments: SCATTERED RONCHI AT THE BASES - Cardiovascular Cardiovascular exam: Present: RRR, +S1, +S2 - GI/Abdominal GI/Abdominal exam: Present: normal bowel sounds, soft - Extremities Exam Extremities exam: Present: normal capillary refill - Neurological Exam Additional comments: TREMORS Internal Medicine: Result - Labs CBC & Chem 7: 08/04/16 07:13 08/04/16 07:13 Labs: Short CBC 08/03/16 08/04/16 Range/Units 13:07 07:13 WBC 5.7 6.1 (4.3-11.1) K/mcL Hgb 11.9 L 12.8 L (12.9-16.9) g/dL Hct 35.5 L 39.4 (37.5-50.1) % Plt Count 110 L 128 L (140-400) K/mcL Neutrophils # 3.9 4.1 (1.6-8.9) K/mcL BMP 08/03/16 08/04/16 08/04/16 13:07 07:13 07:13 Sodium 140 142 142 Potassium 4.0 3.6 3.6 Chloride 112 H 110 H 110 H Carbon Dioxide 24 27 28 BUN 20 14 14 Creatinine 0.77 0.80 0.82 Glucose 128 H 115 H 115 H Calcium 8.1 L 8.8 8.8 Liver Function 08/04/16 Range/Units 07:13 Total Bilirubin 0.8 (0.2-1.2) mg/dL AST 254 H (5-34) Units/L ALT 568 H (0-55) Units/L Alkaline Phosphatase 71 (38-126) Units/L Albumin 2.8 L (3.5-5.0) g/dL - ABG Interpretation ABG results: PT/INR, D-dimer PT 54.1 Seconds (9.4-12.1) H* 08/04/16 07:13 - Impressions Impressions Chest X-Ray 08/03/16 12:23 IMPRESSION: 1. Left lower lobe airspace opacity. In the proper clinical setting, finding is compatible with pneumonia. Recommend follow-up chest radiograph 6-8 weeks post completion of treatment to ensure resolution. If finding persists at that time, CT of the chest would be recommended. 2. Stable mild enlargement of the cardiac silhouette. D/ / Maikel Calero MD / Maikel Calero MD Interpreting Provider: Maikel Calero MD - VTE Documentation of Mechanical Device: Intermittent pneumatic compression device Consult Discharge Plan - Plan Referrals: NO,PCP [Primary Care Provider] - (patient will follow up with ECF PCP)
[2016-08-05] MEDS: Ipratropium/Albuterol Neb 3 ML IH SCH ×7 (00:07→23:27)
[2016-08-05] MEDS: Piperacillin/Tazobactam 3.375 GM in D5% in Water (Mini-Bag+) 100 ML IVPB SCH ×3 (03:07→18:51)
[2016-08-05 06:02] LABS: INR 2.7; Prothrombin Time 29.9 Seconds (9.4-12.1)
[2016-08-05 06:15] LABS: Alanine Aminotransferase 281 Units/L (0-55); Albumin 2.7 g/dL (3.5-5.0); Albumin/Globulin Ratio 0.9 (1.1-2.2); Alkaline Phosphatase 68 Units/L (38-126); Aspartate Amino Transferase 144 Units/L (5-34); BUN/Creatinine Ratio 15 (6-26); Bilirubin,Direct 0.4 mg/dL (0.0-0.5); Bilirubin,Indirect 0.4 mg/dL (0.0-1.2); Bilirubin,Total 0.8 mg/dL (0.2-1.2); Blood Urea Nitrogen 13 mg/dL (8-26); Calcium 8.9 mg/dL (8.6-10.8); Carbon Dioxide 25 mEq/L (19-29); Chloride 112 mEq/L (98-109); Glucose 91 mg/dL (70-99); Osmolality,Calculated 298 (280-300); Sodium 144 mEq/L (136-145); Total Protein 5.7 g/dL (6.0-8.3); eGFR For African Americans > 60 (> 60); eGFR For Non-African Americans > 60 (> 60)
[2016-08-05] MEDS: Diltiazem CD (24hr) 120 MG CAPSULE PO SCH (08:02)
[2016-08-05] MEDS: Ammonium Lactate 30 APPL/225 GM BOTTLE TP SCH (08:03)
[2016-08-05] MEDS: Vancomycin 1,750 MG in D5% in Water 500 ML IVPB SCH ×2 (08:03→18:51)
--- NOTE | 2016-08-05 11:32 | Internal Med Progress Note ---
<Pedro Boudreaux - Last Filed: 08/05/16 11:28> Date of Encounter: 08/05/16 Time of Encounter: 11:32 - Assessment and plan (1) Pneumonia Current Visit: Yes Status: Acute Assessment and plan: 71M presented with hypotension, fever, leukocytosi, and AMS with blood cultures + for gram negative rods. he was started on zosyn with improvement of leukocytosis. Xray on Aug 03 shows L. lower lobe air space disease. While patients leukcytosis has resolved we will continue him on Vancomycin and Zosyn still awaiting culture identification. Qualifiers: Aspiration pneumonia type: unspecified Lung location: lower lobe of lung Qualified Code(s): J69.0 - Pneumonitis due to inhalation of food and vomit (2) Bacteremia Current Visit: Yes Status: Acute Assessment and plan: Patient has been treated with vancomycin and zosyn for the past 5 days due to positive blood culture for gram negative rods. Identification is still pending. Patient is afebrile and vitals are stable. Plan is to continue Vancomycin and Zosyn. Repeat CBC and BMP tomorrow (3) DVT prophylaxis Current Visit: Yes Status: Acute Assessment and plan: Patient was supratherapeutic on warfarin on admission with INR at 4.7. INR is 2.7 today. Will restart warfarin. Pharmacy was notified as they are managing patients warfarin dosage. (4) CHF (congestive heart failure) Current Visit: Yes Status: Chronic Assessment and plan: Patient shows no sings of fluid overload. Absent swelling and rales. Echo shows LVEF of 70%, normal LV chamber size and function. Indeterminate diastolic function. Qualifiers: Qualified Code(s): I50.9 - Heart failure, unspecified (5) Chronic a-fib Current Visit: Yes Status: Chronic Assessment and plan: Rate controlled with Diltiazem. HR is 80. Patient will be restarted on warfarin as INRi s 2.7 Repeat PT/INR AM. (6) Parkinson disease Current Visit: Yes Status: Chronic Assessment and plan: Patient has significant tremors at rest. Pt/OT has been consulted. Speech indicated patient can have thin liquids and pureed textures. Patient's tremors are at baseline. We will continue his Sinemet as scheduled. (7) Dementia Current Visit: Yes Status: Acute Assessment and plan: Patient is currently treated with Donepizil and Namenda for His Dementia. Will will continue this. He has not had any behavioral disturbances overnight. Will continue following mental status. Qualifiers: Dementia type: Alzheimer's disease Alzheimer's disease onset: late-onset Dementia behavioral disturbance: without behavioral disturbance Qualified Code (s): G30.1 - Alzheimer's disease with late onset; F02.80 - Dementia in other diseases classified elsewhere without behavioral disturbance (8) Transaminitis Current Visit: Yes Status: Acute Assessment and plan: Patient presented with sepsis including hypotention. Since admission his LFTs have been trending down. US liver shows mild to moderate hepatic steatosis and possible early fibrosis. This is most likely 2n to shock liver. We will continue monitoring AST/ALT. Patient denies any abdominal pain and abdominal physical exam is normal. - Subjective Interval history: Patient had no overnight complaints. He continues to have sob. He denies chestpain, palpitations, abdominal pain, nausea, lower extremity swelling. - Constitutional Vitals: Temp Pulse Resp BP Pulse Ox 97.5 F L 80 16 108/66 98 08/05/16 10:28 08/05/16 10:28 08/05/16 11:24 08/05/16 10:28 08/05/16 11:24 General appearance: Present: A&O X 3, no acute distress, answers questions appropriately - Respiratory Respiratory exam: Present: decreased breath sounds, rhonchi (b/l basilar ), wheezes (throughout all lung carballo ). Absent: accessory muscle use, rales - Cardiovascular Cardiovascular exam: Present: RRR, +S1, +S2. Absent: diastolic murmur, gallop, rubs, systolic murmur - Extremities Exam Extremities exam: Present: warm, radial pulses palpable and symetrical. Absent : calf tenderness, cyanotic, pedal edema Additional comments: there is tremor in both upper extremitites. - Psychiatric Psychiatric exam: Present: normal affect, normal mood Internal Medicine: Result - Labs CBC & Chem 7: 08/04/16 07:13 08/05/16 05:28 Labs: BMP 08/05/16 05:28 Sodium 144 Potassium 4.0 Chloride 112 H Carbon Dioxide 25 BUN 13 Creatinine 0.84 Glucose 91 Calcium 8.9 Liver Function 08/05/16 Range/Units 05:28 Total Bilirubin 0.8 (0.2-1.2) mg/dL Direct Bilirubin 0.4 (0.0-0.5) mg/dL AST 144 H (5-34) Units/L ALT 281 H (0-55) Units/L Alkaline Phosphatase 68 (38-126) Units/L Albumin 2.7 L (3.5-5.0) g/dL - ABG Interpretation ABG results: PT/INR, D-dimer PT 29.9 Seconds (9.4-12.1) H 08/05/16 05:28 - Impressions Impressions Abdomen Ultrasound 08/04/16 11:41 IMPRESSION: 1. Mild to moderate hepatic steatosis. Hepatic echotexture also appears coarsened, suggesting underlying hepatocellular disease such as early fibrosis. No findings of agusto cirrhosis are identified. 2. Otherwise normal examination. D/ / Suhail Mariano MD / Suhail Mariano MD Interpreting Provider: Suhail Mariano MD - VTE Documentation of Mechanical Device: Intermittent pneumatic compression device Consult Discharge Plan - Plan Referrals: NO,PCP [Primary Care Provider] - (patient will follow up with ECF PCP) <Bhavesh Landers P - Last Filed: 08/05/16 18:25> Date of Encounter: 08/05/16 - Constitutional Vitals: Temp Pulse Resp BP Pulse Ox 97.5 F L 76 16 93/54 98 08/05/16 15:14 08/05/16 15:14 08/05/16 15:55 08/05/16 15:14 08/05/16 15:55 Internal Medicine: Result - Labs CBC & Chem 7: 08/04/16 07:13 08/05/16 05:28 Labs: BMP 08/05/16 05:28 Sodium 144 Potassium 4.0 Chloride 112 H Carbon Dioxide 25 BUN 13 Creatinine 0.84 Glucose 91 Calcium 8.9 Liver Function 08/05/16 Range/Units 05:28 Total Bilirubin 0.8 (0.2-1.2) mg/dL Direct Bilirubin 0.4 (0.0-0.5) mg/dL AST 144 H (5-34) Units/L ALT 281 H (0-55) Units/L Alkaline Phosphatase 68 (38-126) Units/L Albumin 2.7 L (3.5-5.0) g/dL - ABG Interpretation ABG results: PT/INR, D-dimer PT 29.9 Seconds (9.4-12.1) H 08/05/16 05:28 - Attending Attestation I examined this patient and my medical decision-making was reviewed with the VISITING PROFESSOR/PA/Advanced Practice Nurse/Resident Physician. I agree with the documented findings, disposition and treatment plan as described except to the extent set forth below.
[2016-08-05] MEDS ORDERED: *HR* Warfarin 2 MG TABLET PO SCH (18:00)
[2016-08-05] MEDS ORDERED: Warfarin perPT PO PRN (18:00)
[2016-08-06] MEDS: Piperacillin/Tazobactam 3.375 GM in D5% in Water (Mini-Bag+) 100 ML IVPB SCH ×3 (03:53→18:00)
[2016-08-06 04:04] LABS: Basophils % 0.6 %; Eosinophils # 0.3 K/mcL (0.0-0.6); Eosinophils % 3.8 %; Hematocrit 37.3 % (37.5-50.1); Hemoglobin 12.3 g/dL (12.9-16.9); Immature Granulocytes % 0.4 % (0-4); Lymphocytes # 1.5 K/mcL (0.6-4.6); Lymphocytes % 22.2 %; Mean Corpuscular Hemoglobin 30.7 pg (28.0-33.3); Mean Platelet Volume 10.5 fL (9.4-12.4); Monocytes # 0.7 K/mcL (0.0-1.3); Neutrophils # 4.3 K/mcL (1.6-8.9); Platelet Count 157 K/mcL (140-400); Red Blood Count 4.01 M/mcL (4.19-5.50); Red Cell Distribution Width 15.4 % (11.5-14.5)
[2016-08-06 04:07] LABS: INR 1.8; Prothrombin Time 20.3 Seconds (9.4-12.1)
[2016-08-06 04:20] LABS: Alanine Aminotransferase 152 Units/L (0-55); Albumin 2.8 g/dL (3.5-5.0); Albumin/Globulin Ratio 0.9 (1.1-2.2); Alkaline Phosphatase 70 Units/L (38-126); Aspartate Amino Transferase 93 Units/L (5-34); BUN/Creatinine Ratio 16 (6-26); Bilirubin,Total 0.5 mg/dL (0.2-1.2); Blood Urea Nitrogen 13 mg/dL (8-26); Carbon Dioxide 26 mEq/L (19-29); Chloride 107 mEq/L (98-109); Globulin 3.1 g/dL (2.4-3.5); Glucose 87 mg/dL (70-99); Osmolality,Calculated 287 (280-300); Potassium 4.1 mEq/L (3.5-4.5); Sodium 139 mEq/L (136-145); Total Protein 5.9 g/dL (6.0-8.3); eGFR For African Americans > 60 (> 60); eGFR For Non-African Americans > 60 (> 60)
[2016-08-06] MEDS: Ipratropium/Albuterol Neb 3 ML IH SCH ×6 (04:25→23:29)
[2016-08-06] MEDS: Vancomycin 1,750 MG in D5% in Water 500 ML IVPB SCH (06:52)
[2016-08-06] MEDS: Diltiazem CD (24hr) 120 MG CAPSULE PO SCH (08:53)
[2016-08-06] MEDS: Ammonium Lactate 30 APPL/225 GM BOTTLE TP SCH (08:55)
--- NOTE | 2016-08-06 13:16 | Internal Med Progress Note ---
<Cuba Munoz - Last Filed: 08/06/16 14:16> Date of Encounter: 08/06/16 Time of Encounter: 13:14 - Assessment and plan (1) HCAP (healthcare-associated pneumonia) Current Visit: Yes Status: Acute Assessment and plan: CXR on 08/03/16 showed left lower lobe opacity concerning for HCAP as initial CXR was negative He may have possibly aspirated due to history of Parkinsons Continue with Vancomycin and Zosyn (2) Bacteremia Current Visit: Yes Status: Acute Assessment and plan: Initial blood cultures were positive 07/30 for Bacillus, but repeat blood cultures x1 collected on 08/04 negative so far Continue Vanc/Zosyn, day 6 Patient remains afebrile, non-tachycardic, without leukocytosis (3) Chronic a-fib Current Visit: Yes Status: Chronic Assessment and plan: Currently rate controlled with Diltiazem with HR in 70's Patient will be restarted on warfarin as subtherapeutic today at 1.8 Repeat PT/INR (4) CHF (congestive heart failure) Current Visit: Yes Status: Chronic Assessment and plan: Patient is not fluid overloaded Echo shows LVEF of 70%, normal LV chamber size and function Indeterminate diastolic function Qualifiers: Qualified Code(s): I50.9 - Heart failure, unspecified (5) Parkinson disease Current Visit: Yes Status: Chronic Assessment and plan: Patient has significant tremors at rest which is his baseline, continue home Sinemet He has denied PT/OT services so far, but will likely go back ECF upon discharge Speech indicated patient can have thin liquids and pureed textures with Ensure supplements (6) DVT prophylaxis Current Visit: Yes Status: Acute Assessment and plan: Will continue home Warfarin and follow PT/INR - Subjective Interval history: Pt seen and examined. He states he is doing well this morning and has no complaints of pain, shortness of breath, cough or fever. He is eager to go home but understands that he needs to stay to treat his infection. Has no issues with his meals and denies diarrhea, vomiting, hematuria or bloody stools. - Constitutional Vitals: Temp Pulse Resp BP Pulse Ox 97.5 F L 79 15 103/64 98 08/06/16 11:55 08/06/16 11:55 08/06/16 12:02 08/06/16 11:55 08/06/16 12:02 General appearance: Present: cooperative, pleasant, no acute distress, answers questions appropriately - Head Head exam: Present: atraumatic, normocephalic - Eye Eye exam: Present: PERRL, conjuntiva pink, sclera anicteric - Neck Neck exam general surgery: Present: supple, trachea midline. Absent: lymphadenopathy - Respiratory Respiratory exam: Present: wheezes. Absent: accessory muscle use, rales, rhonchi - Cardiovascular Cardiovascular exam: Present: RRR, +S1, +S2. Absent: diastolic murmur, gallop, rubs, systolic murmur - GI/Abdominal GI/Abdominal exam: Present: normal bowel sounds, soft, no peritoneal signs. Absent: distended, tenderness - Extremities Exam Extremities exam: Present: warm, radial pulses palpable and symetrical. Absent : calf tenderness, cyanotic, pedal edema - Neurological Exam Neurological exam: Present: alert, oriented X3, no focal deficits. Absent: facial droop, speech deficit - Skin Skin exam: Present: dry, intact Internal Medicine: Result - Labs CBC & Chem 7: 08/06/16 03:48 08/06/16 03:48 Labs: Short CBC 08/06/16 Range/Units 03:48 WBC 6.8 (4.3-11.1) K/mcL Hgb 12.3 L (12.9-16.9) g/dL Hct 37.3 L (37.5-50.1) % Plt Count 157 (140-400) K/mcL Neutrophils # 4.3 (1.6-8.9) K/mcL BMP 08/06/16 03:48 Sodium 139 Potassium 4.1 Chloride 107 Carbon Dioxide 26 BUN 13 Creatinine 0.82 Glucose 87 Calcium 9.0 Liver Function 08/06/16 Range/Units 03:48 Total Bilirubin 0.5 (0.2-1.2) mg/dL AST 93 H (5-34) Units/L ALT 152 H (0-55) Units/L Alkaline Phosphatase 70 (38-126) Units/L Albumin 2.8 L (3.5-5.0) g/dL - ABG Interpretation ABG results: PT/INR, D-dimer PT 20.3 Seconds (9.4-12.1) H 08/06/16 03:48 - VTE Documentation of Mechanical Device: Intermittent pneumatic compression device Consult Discharge Plan - Plan Referrals: NO,PCP [Primary Care Provider] - (patient will follow up with ECF PCP) <Bhavesh Landers - Last Filed: 08/06/16 18:02> Date of Encounter: 08/06/16 - Constitutional Vitals: Temp Pulse Resp BP Pulse Ox 97.4 F L 64 16 95/56 98 08/06/16 16:31 08/06/16 16:31 08/06/16 16:31 08/06/16 16:31 08/06/16 16:31 Internal Medicine: Result - Labs CBC & Chem 7: 08/06/16 03:48 08/06/16 03:48 Labs: Short CBC 08/06/16 Range/Units 03:48 WBC 6.8 (4.3-11.1) K/mcL Hgb 12.3 L (12.9-16.9) g/dL Hct 37.3 L (37.5-50.1) % Plt Count 157 (140-400) K/mcL Neutrophils # 4.3 (1.6-8.9) K/mcL BMP 08/06/16 03:48 Sodium 139 Potassium 4.1 Chloride 107 Carbon Dioxide 26 BUN 13 Creatinine 0.82 Glucose 87 Calcium 9.0 Liver Function 08/06/16 Range/Units 03:48 Total Bilirubin 0.5 (0.2-1.2) mg/dL AST 93 H (5-34) Units/L ALT 152 H (0-55) Units/L Alkaline Phosphatase 70 (38-126) Units/L Albumin 2.8 L (3.5-5.0) g/dL - ABG Interpretation ABG results: PT/INR, D-dimer PT 20.3 Seconds (9.4-12.1) H 08/06/16 03:48 - Attending Attestation I examined this patient and my medical decision-making was reviewed with the PARKING LOT ATTENDANT AND CASHIER/PA/Advanced Practice Nurse/Resident Physician. I agree with the documented findings, disposition and treatment plan as described except to the extent set forth below.
[2016-08-06] MEDS ORDERED: *HR* Warfarin 1 MG TABLET PO SCH (18:00)
[2016-08-07] MEDS ORDERED: Vancomycin 1,500 MG in D5% in Water 250 ML IVPB SCH (01:00)
[2016-08-07] MEDS: Piperacillin/Tazobactam 3.375 GM in D5% in Water (Mini-Bag+) 100 ML IVPB SCH (03:43)
[2016-08-07] MEDS: Ipratropium/Albuterol Neb 3 ML IH SCH ×2 (04:33→07:29)
[2016-08-07 07:14] LABS: Basophils % 0.4 %; Eosinophils # 0.3 K/mcL (0.0-0.6); Eosinophils % 4.3 %; Hematocrit 37.7 % (37.5-50.1); Hemoglobin 12.1 g/dL (12.9-16.9); Immature Granulocytes % 0.7 % (0-4); Lymphocytes # 1.4 K/mcL (0.6-4.6); Lymphocytes % 20.6 %; Mean Corpuscular HGB Conc 32.1 g/dL (31.6-35.5); Mean Corpuscular Hemoglobin 29.9 pg (28.0-33.3); Mean Corpuscular Volume 93.1 fL (83.0-100.0); Mean Platelet Volume 10.3 fL (9.4-12.4); Monocytes # 0.6 K/mcL (0.0-1.3); Monocytes % 8.2 %; Neutrophils # 4.4 K/mcL (1.6-8.9); Platelet Count 166 K/mcL (140-400); Red Blood Count 4.05 M/mcL (4.19-5.50); Red Cell Distribution Width 15.6 % (11.5-14.5); Segmented Neutrophils % 65.8 %
[2016-08-07 07:26] LABS: INR 2.1; Prothrombin Time 23.4 Seconds (9.4-12.1)
[2016-08-07 07:31] LABS: BUN/Creatinine Ratio 15 (6-26); Blood Urea Nitrogen 12 mg/dL (8-26); Calcium 9.1 mg/dL (8.6-10.8); Carbon Dioxide 26 mEq/L (19-29); Chloride 108 mEq/L (98-109); Glucose 88 mg/dL (70-99); Osmolality,Calculated 287 (280-300); Potassium 3.8 mEq/L (3.5-4.5); Sodium 139 mEq/L (136-145); eGFR For African Americans > 60 (> 60); eGFR For Non-African Americans > 60 (> 60)
[2016-08-07 08:05] VITALS: BP 110/56
[2016-08-07] MEDS: Diltiazem CD (24hr) 120 MG CAPSULE PO SCH (08:12)
--- NOTE | 2016-08-07 08:53 | Discharge Summary ---
<Cuba Munoz - Last Filed: 08/07/16 14:51> Date of Encounter: 08/07/16 Time of Encounter: 08:49 - Discharge Diagnosis (1) HCAP (healthcare-associated pneumonia) Priority: Primary Status: Acute (2) Bacteremia Priority: Secondary Status: Suspected Comments: likely contaminant as only 1/2 was positive (3) Chronic a-fib Priority: Secondary Status: Chronic (4) CHF (congestive heart failure) Priority: Secondary Status: Chronic Qualifiers: Qualified Code(s): I50.9 - Heart failure, unspecified (5) Parkinson disease Priority: Secondary Status: Chronic - Discharge Medications Prescriptions: Amoxicillin/Clavulanate [Augmentin] 875 mg PO BIDWM #10 tablet Home Medications: Carbidopa/Levodopa [Carbidopa-Levodopa 10-100 Tab] 1 tab PO TID 04/19/15 [ History] Donepezil HCl 10 mg PO DAILY 04/19/15 [History] Furosemide 20 mg PO DAILY 04/19/15 [History] Memantine HCl [Namenda Xr] 28 mg PO HS 04/19/15 [History] Potassium Chloride 10 meq PO DAILY 04/19/15 [History] Verapamil HCl [Verapamil ER] 240 mg PO DAILY 04/19/15 [History] Warfarin Sodium 1.5 tab PO DAILY 04/19/15 [History] Ammonium Lactate [Ashlyn-Hydrolac] 1 appl TP DAILY 07/31/16 [History] Cetirizine HCl [All Day Allergy] 10 mg PO DAILY 07/31/16 [History] Haloperidol Decanoate [Haldol] 5 mg IM DAILY PRN 07/31/16 [History] Haloperidol [Haldol] 5 mg PO DAILY PRN 07/31/16 [History] Menthol/Zinc Oxide [Moisture Barrier Ointment] 1 appl TP QID 07/31/16 [History] Mirtazapine [Remeron] 15 mg PO HS 07/31/16 [History] Quetiapine Fumarate [Seroquel] 25 mg PO BID 07/31/16 [History] Quetiapine Fumarate [Seroquel] 25 mg PO QWEEK MDD saturday07/31/16 [History] Sertraline [Zoloft] 100 mg PO DAILY 07/31/16 [History] Amoxicillin/Clavulanate [Augmentin] 875 mg PO BIDWM #10 tablet 08/07/16 [Rx] Allergies/Adverse Reactions: Allergies No Known Allergies Allergy (Verified 07/31/16 07:47) Procedures/tests Complete & Pending: Procedures Performed prior 72 hours Category Date Time Status abdominal ultrasound - limited [US abdomen limited] [US Exams 08/04/16 11:41 Completed ] Routine Date of admission: 07/31/16 15:39 Primary care physician: PCP NO Consults: 08/03/16 17:09 Consult for Pharmacy Education [CONS] Routine Reason for Consult: help dose vanco Call Completed: Yes Discharging clinician: Bhavesh Landers Anticipated date of discharge: 08/07/16 - Patient Status Disposition: Transfer LTC Condition: Fair Functional capacity at discharge: bed bound Overall status at discharge: patient is progressing back to baseline - Discharge Instructions Instructions: Pneumonia (DC) Follow Up With: NO,PCP [Primary Care Provider] - (patient will follow up with ECF PCP) Additional Instructions: Please schedule appointment with PCP for hospital follow up with 1 week - Diet and Activity Activity: wear oxygen at night (as needed) Diet: other (pureed with Ensure plus breakfast) Hospital course: Mr. Meza is a 71 year old male present with altered mental status. He resides in a chcf at [place], and has a history of Parkinson's and dementia. There is no family at bedside so it is unclear how far off from his baseline he was. Head CT was negative for acute intracranial abnormalities. He did speak coherently and uses 3-4 words percentiles and responds appropriately to command. Shortly after admission, patient developed a fever and was borderline hypotensive. There is no obvious source of infection but he was started on IV Zosyn due to his septic presentation. A chest x-ray several days after his admission showed left lower lobe airspace opacity concerning for pneumonia, and vancomycin was added to cover for care associated pneumonia. His blood cultures that were initially collected on admission showed bacillus species in one of the 2 cultures, which is likely interpreted as an contaminant. Repeat blood cultures on August 04 showed no growth. Today patient is awake, comfortable in bed and has no complaints of breathing or pain and is eager to go home. He is tolerating his meals without any nausea, vomiting, diarrhea. His leukocytosis has resolved and his vital signs are within normal limits. Patient will go back to [facility] nursing facility today with 5 days of Augmentin after completing 7 days of vancomycin and Zosyn. - Time Spent with Patient Total time spent providing and/or coordinating discharge services: Greater than 30 minutes - Constitutional Vitals: Temp Pulse Resp BP Pulse Ox 97.8 F 97 15 110/56 96 08/07/16 08:03 08/07/16 08:03 08/07/16 08:03 08/07/16 08:03 08/07/16 08:03 General appearance: Present: cooperative, pleasant, no acute distress, answers questions appropriately - Head Head exam: Present: atraumatic, normocephalic - Eye Eye exam: Present: PERRL, conjuntiva pink, sclera anicteric - Neck Neck exam general surgery: Present: supple, trachea midline. Absent: lymphadenopathy - Respiratory Respiratory exam: Present: CTAB. Absent: accessory muscle use, rales, rhonchi, wheezes - Cardiovascular Cardiovascular exam: Present: RRR, +S1, +S2, systolic murmur. Absent: diastolic murmur, gallop, rubs - GI/Abdominal GI/Abdominal exam: Present: normal bowel sounds, soft, no peritoneal signs. Absent: distended, tenderness - Extremities Exam Extremities exam: Present: warm, radial pulses palpable and symetrical. Absent : calf tenderness, cyanotic, pedal edema - Neurological Exam Neurological exam: Present: alert, no focal deficits. Absent: oriented X3, facial droop, speech deficit Additional comments: tremors, has h/o Parkinsons - Skin Skin exam: Present: dry, intact - VTE Documentation of Mechanical Device: Intermittent pneumatic compression device <Bhavesh Landers P - Last Filed: 08/07/16 16:55> Date of Encounter: 08/07/16 Date of admission: 07/31/16 15:39 Primary care physician: PCP NO Consults: 08/03/16 17:09 Consult for Pharmacy Education [CONS] Routine Reason for Consult: help dose vanco Call Completed: Yes Hospital course: Mr. Meza is a 71 year old male - Time Spent with Patient Total time spent providing and/or coordinating discharge services: - Constitutional Vitals: Temp Pulse Resp BP Pulse Ox 97.8 F 97 15 110/56 96 08/07/16 08:03 08/07/16 08:03 08/07/16 08:03 08/07/16 08:03 08/07/16 08:03 - Attending Attestation I examined this patient and my medical decision-making was reviewed with the PAPER TUBE GRADER/PA/Advanced Practice Nurse/Resident Physician. I agree with the documented findings, disposition and treatment plan as described except to the extent set forth below.
--- NOTE | 2016-08-07 08:59 | Physician Discharge Referral ---
<Cuba Munoz - Last Filed: 08/07/16 08:57> [facility] Referral Info Transfer To: [facility] Provider in Charge: Bhavesh Landers MD Provider in Charge after Transfer: PCP Institutional Level of Care: Skilled - Diagnosis (1) HCAP (healthcare-associated pneumonia) Priority: Primary Status: Acute (2) Bacteremia Priority: Secondary Status: Suspected (3) Chronic a-fib Priority: Secondary Status: Chronic (4) CHF (congestive heart failure) Priority: Secondary Status: Chronic (5) Parkinson disease Priority: Secondary Status: Chronic - Transfer Medications Prescriptions: Amoxicillin/Clavulanate [Augmentin] 875 mg PO BIDWM #10 tablet Home Medications: Carbidopa/Levodopa [Carbidopa-Levodopa 10-100 Tab] 1 tab PO TID 04/19/15 [ History] Donepezil HCl 10 mg PO DAILY 04/19/15 [History] Furosemide 20 mg PO DAILY 04/19/15 [History] Memantine HCl [Namenda Xr] 28 mg PO HS 04/19/15 [History] Potassium Chloride 10 meq PO DAILY 04/19/15 [History] Verapamil HCl [Verapamil ER] 240 mg PO DAILY 04/19/15 [History] Warfarin Sodium 1.5 tab PO DAILY 04/19/15 [History] Ammonium Lactate [Ashlyn-Hydrolac] 1 appl TP DAILY 07/31/16 [History] Cetirizine HCl [All Day Allergy] 10 mg PO DAILY 07/31/16 [History] Haloperidol Decanoate [Haldol] 5 mg IM DAILY PRN 07/31/16 [History] Haloperidol [Haldol] 5 mg PO DAILY PRN 07/31/16 [History] Menthol/Zinc Oxide [Moisture Barrier Ointment] 1 appl TP QID 07/31/16 [History] Mirtazapine [Remeron] 15 mg PO HS 07/31/16 [History] Quetiapine Fumarate [Seroquel] 25 mg PO BID 07/31/16 [History] Quetiapine Fumarate [Seroquel] 25 mg PO QWEEK MDD saturday07/31/16 [History] Sertraline [Zoloft] 100 mg PO DAILY 07/31/16 [History] Amoxicillin/Clavulanate [Augmentin] 875 mg PO BIDWM #10 tablet 08/07/16 [Rx] Allergies/Adverse Reactions: Allergies No Known Allergies Allergy (Verified 07/31/16 07:47) - Respiratory Orders Oxygen / L per min Smoking Cessation: Smoking cessation has been advised. For more information, call the [employer] Quit Line at 0-252-DWGZ-NOW. - Ancillary Orders May use pressure relief devices daily prn, May go on KATY w/family/respon alliance party w /meds at nurse discretion PRN, May consult with Dentist, Industry Consultant, Electronic Field Service Engineer PRN - Advance Directives Code Status: Full Code - Mobility Orders Bedrest - Rehabiliation Orders Rehab Potential: Fair Rehab Orders: Sternal Precautions, ROM Exercises, Evaluation for Physical Therapy, Evaluation for Occupational Therapy, Evaluation for Speech Therapy - Treatments Skin tear care topically daily PRN per policy, May check for fecal impaction rectally daily PRN, Fleet enema rectally every other day PRN cleansing purposes - Diet Orders Pureed (Ensure plus breakfast) CERTIFICATION: I certify that the transfer of the above named patient to an Extended Care Facility is necessary for the continuing treatment of the diagnosis listed. The above information is true and accurate reflection of patient's current condition. Confidential - Redisclosure prohibited without a patient's written consent. <Bhavesh Landers P - Last Filed: 08/07/16 16:55> - Respiratory Orders Smoking Cessation: Smoking cessation has been advised. For more information, call the [employer] Quit Line at 5-399-SVFS-NOW. CERTIFICATION: I certify that the transfer of the above named patient to an Extended Care Facility is necessary for the continuing treatment of the diagnosis listed. The above information is true and accurate reflection of patient's current condition. Confidential - Redisclosure prohibited without a patient's written consent.
[2016-08-07] MEDS: Ammonium Lactate 30 APPL/225 GM BOTTLE TP SCH (09:27)
[2016-08-07] MEDS ORDERED: Aminoglycoside Consult 1 EACH MC ONE (11:07)
== END 2016-08-07 11:08 | DRG 178 ==
LOC: 2ANU 07:42 → EMEROO 07:42 → 2ANU 12:54 → SUATTDRO 15:39
PROVIDERS: ADMIT Internal Medicine; ATTEND Internal Medicine